=== PATIENT | female | born 1955 | race Caucasian/White ===

== ENCOUNTER 2017-01-16 19:25 | Emergency (ER) | payer OTHER ==
--- NOTE | 2017-01-16 20:59 | ED ORDER SUMMARY ---
..... Patient: GERALD WEBER OrderSheet [facility] VisitID: [id number] [address] [place] [address] 61y, F Registration Date/Time: 01/16/2017 ORDER SHEET Weight: 89.3 kg (stated) Allergies: Bactrim, Codeine GENERAL ORDERS: UA-Culture if indicated Urgent (19:30 01/16/2017 [facility]) (Ack 19:32 [facility] Hand Weaver) (19:43 TLewis R.N.) Old Records (from [facility] visit 3 days ago) (19:44 01/16/2017 [facility]) (Ack 19:45 [facility]) (20:04 [facility] Hand Weaver) POC Glucose (20:17 01/16/2017 [facility]) (Ack 20:22 MWinterer R.N.) (20:28 MWinterer R.N.) MEDICATION ORDERS: Levofloxacin PO 750 mg (NOW) (20:17 01/16/2017 [facility]) (Ack 20:22 MWinterer R.N.) (20:28 MWinterer R.N.) IV FLUIDS: ORDER SHEET NOTES: [Electronically signed by Merrick Strong R.N. (21:12 01/16/2017)] [Electronically signed by Juanito Dawson DO (23:10 01/16/2017)] [Electronically locked/signed by Merrick Strong R.N. (21:12 01/16/2017)]
--- NOTE | 2017-01-16 20:59 | ED CLINICAL REPORT ---
Clinical Report - Physicians/Mid Levels [facility] [address] [place] [address] 01/16/2017 19:25 Patient: GERALD WEBER Time Seen: 19:30. Arrived- By private vehicle. Historian- patient. HISTORY OF PRESENT ILLNESS Chief Complaint: PELVIC PAIN. fatigue. This started today and still present. It was gradual in onset and has been waxing/waning. The symptoms are described as moderate. Modifying factors. Not worsened by anything. Not relieved by anything. The patient has had abdominal pain. The pain is described as located in the lower abdomen and pelvic pain. No low back pain, flank pain, pain with urination, urinary frequency or urgency of urination. No hematuria. The patient is post-menopausal. (Pt is having lower abdominal pain. No pain on urination. Last bm was today, normal per pt. Pt denies any n/v. Pt was seen at [place] in Wednesday, in the ER. Pt had an UTI. She was given antibiotics and still taking them. Pt is here because she doesnt think she is getting any better.). Denies current . Similar symptoms previously: Recent medical care: The patient was seen recently at another facility in the emergency department. Seen for similar symptoms. Evaluation/treatment: CT, labs, CBC, electrolytes, urinalysis and antibiotic prescribed. Diagnosis: pelvic pain and UTI (Diarrhea). ( Seen 3 days ago at [facility] REVIEW OF SYSTEMS No nausea, vomiting, black stools, fever or chills. No sore throat, cough, difficulty breathing, skin rash or enlarged lymph nodes. She has had diarrhea (for several days, now normal BM today). All systems otherwise negative, except as recorded above. PAST HISTORY See nurses notes. ( PCP: Kaylie Addi ([facility]) PROBLEMS: Candidiasis. Diabetes Type II (uses orals and insulin) Herpes Genitalis. Fractured Phalanx (Finger). Dupuytren's contracture of left hand Prior MRSA infection. Arthritis. GERD. Hypercholesterolemia. SURGERIES: Carpal Tunnel Surgery. Knee surgery in 2007 Gastric bypass. Panniculectomy). Medications: Cephalexin Oral. Glipizide Oral. Imprine, , sleeping pill. Insulin Lantus 5 units, at bedtime. Multivitamins Oral. Norvastatin 40mg. Vit b12. Allergies: Bactrim. Codeine. SOCIAL HISTORY Former smoker, end date 1984. No alcohol use or drug use. ADDITIONAL NOTES The nursing notes have been reviewed. PHYSICAL EXAM Vital Signs: 01/16/2017 19:28 BP: 146/87. HR: 95. RR: 18. O2 saturation: 100%. Temp: 98 F. Appearance: Alert. Oriented X3. Patient in mild distress. HEENT: Normal external inspection. Eyes: No scleral icterus or pale conjunctivae. ENT: Pharynx normal. No hearing deficit or pharyngeal erythema. Neck: Neck supple. CVS: Heart sounds normal. Respiratory: No respiratory distress. Breath sounds normal. Chest nontender. Abdomen: Soft. Mild tenderness in the lower abdomen. No organomegaly. No mass. No rebound tenderness or guarding. Back: Normal external inspection. No CVA tenderness. Skin: Skin warm and dry. Normal skin color. Normal skin turgor. Extremities: Extremities nontender. No lower extremity edema. Neuro: Oriented X 3. No motor deficit. LABS, X-RAYS, AND EKG Laboratory Tests: UA-Culture if indicated: (JENNIE: 01/16/2017 19:21) ( MsgRcvd 01/16/2017 20:47) Final results Test Result Flag Units (Reference) URINE COLOR YELLOW URINE APPEARANCE HAZY URINE GLUCOSE 1+ (NEGATIVE) URINE BILIRUBIN NEGATIVE (NEGATIVE) URINE KETONE NEGATIVE (NEGATIVE) URINE SPECIFIC GRAVITY 1.015 (1.010-1.030) URINE PH 6.0 (5.0-8.0) URINE PROTEIN TRACE (NEGATIVE) URINE UROBILINOGEN 0.2 EU/dL (0.2-1.0) URINE NITRITE NEGATIVE (NEGATIVE) URINE BLOOD NEGATIVE (NEGATIVE) URINE LEUK ESTERASE NEGATIVE (NEGATIVE) URINE RBC NONE SEEN rbc/hpf (0-1) URINE WBC 5-10 wbc/hpf (0-1) URINE EPITHELIAL CELLS >15 EPI/hpf (0-5) URINE BACTERIA NONE SEEN (NONE SEEN) URINE COMMENT CULT NOT INDICATED URINE CULTURES ARE SET-UP BASED ON THE FOLLOWING CRITERIA:POSITIVE NITRITEPOSITIVE LEUKOCYTE ESTERASEGREATER THAN 10 WHITE BLOOD CELLSMODERATE (2+) OR GREATER BACTERIA . Bedside Tests: Glucose: moderate hyperglycemia - 208 (performed at bedside). Pulse Oximetry: 01/16/2017 19:28 O2 saturation: 100%. (FIO2 - room air). Interpretation: normal. Note - Tests: (CBC (done 2 days ago at [facility]): normal C.diff: neg Stool culture: no bacterial pathogens, only normal emma CT abd/pelvis w/o contrast (done 2 days ago at [facility]): No gross acute inflammatory or obstructive process seen in the abd or pelvis; post gastric bypass). PROGRESS AND PROCEDURES Course of Care: Pt had extensive work up at [facility] about 2 days ago (blood, urine, stool and CT abd/pelvis). Diarrhea has now improved, but has only had a few doses of antibiotics (Keflex per pt) to treat her UTI. Urine culture from [facility] is still pending, but still 5-10 WBC's but no bacteria now. I will assume that the bacteria is incompletely sensitive to keflex (vs partially treated now with no bacteria on UA now). After a long discussion with patient about repeating the work up, she states she does not want this and would like to try an alternative antibiotic and return to emergency tomorrow or report to her pcp for further work up / treatment if not improving as expected - as her diarrhea has essentially resolved now, she most likely is nearing resolution of her other (likely viral) symptoms as well. 01/16/2017 21:09 BP: 147/76. HR: 69. RR: 14. O2 saturation: 100%. Temp: 97.7 F. Pain level now: 0/10. Patient/family counseled. Old ED records reviewed. (from [facility]). Disposition: Discharged. Condition: stable and improved. CLINICAL IMPRESSION Diarrhea Acute urinary tract infection with cystitis (resolving). Chronic, moderately well controlled type 2 diabetes with hyperglycemia. No coma. Essential hypertension. INSTRUCTIONS Rest. Do not work for three days. Drink plenty of fluids. (You have elected to hold repeated blood tests today. Your urine may represent a partially treated or resistant infection. Please report any tendon (especially Achilles tendon) pain to your doctor and you may need to hold your new antibiotic. Please rest and drink plenty of fluids and follow up with your doctor / clinic and / or return to emergency for any new or worsening symptoms or any concerns.). Warnings: Further evaluation is necessary in order to recheck abnormal lab, obtain test results, conduct further tests and assess the possibility of serious illness. It is very important to follow up with a physician. GENERAL WARNINGS: Return or contact your physician immediately if your condition worsens or changes unexpectedly, if not improving as expected, or if other problems arise. Specifically return if pain, vomiting, bleeding, breathing difficulty or fever. Your Current Medications: STOP TAKING THE FOLLOWING MEDICATIONS: Cephalexin Oral. CONTINUE TAKING THE FOLLOWING MEDICATIONS: Glipizide Oral. Imprine* : sleeping pill. Insulin Lantus* : 5 units at bedtime. Multivitamins Oral. Norvastatin* : 40mg. Vit b12*. Prescription Medications: Cipro 500 mg: take 1 tab orally every 12 hours for 3 days. Dispense six (6). No refills. Substitution is permissible. OTC Medications: Take acetaminophen (Tylenol, Datril, etc.) and ibuprofen (Advil, Nuprin, etc.) according to label instructions. Available over the counter. Follow-up: Follow up with your doctor in about two days. Screening today revealed the patient's blood pressure to be in the hypertensive range. The patient should follow up with a primary care provider for blood pressure management. (Electronically signed by Juanito Dawson DO 01/16/2017 23:10)
--- NOTE | 2017-01-16 20:59 | ED CLINICAL REPORT ---
Clinical Report - Physicians/Mid Levels [facility] [address] [place] [address] 01/16/2017 19:25 Patient: GERALD WEBER Time Seen: 19:30. Arrived- By private vehicle. Historian- patient. HISTORY OF PRESENT ILLNESS Chief Complaint: PELVIC PAIN. fatigue. This started today and still present. It was gradual in onset and has been waxing/waning. The symptoms are described as moderate. Modifying factors. Not worsened by anything. Not relieved by anything. The patient has had abdominal pain. The pain is described as located in the lower abdomen and pelvic pain. No low back pain, flank pain, pain with urination, urinary frequency or urgency of urination. No hematuria. The patient is post-menopausal. (Pt is having lower abdominal pain. No pain on urination. Last bm was today, normal per pt. Pt denies any n/v. Pt was seen at [place] in Wednesday, in the ER. Pt had an UTI. She was given antibiotics and still taking them. Pt is here because she doesnt think she is getting any better.). Denies current . Similar symptoms previously: Recent medical care: The patient was seen recently at another facility in the emergency department. Seen for similar symptoms. Evaluation/treatment: CT, labs, CBC, electrolytes, urinalysis and antibiotic prescribed. Diagnosis: pelvic pain and UTI (Diarrhea). ( Seen 3 days ago at [facility] REVIEW OF SYSTEMS No nausea, vomiting, black stools, fever or chills. No sore throat, cough, difficulty breathing, skin rash or enlarged lymph nodes. She has had diarrhea (for several days, now normal BM today). All systems otherwise negative, except as recorded above. PAST HISTORY See nurses notes. ( PCP: Kaylie Addi ([facility]) PROBLEMS: Candidiasis. Diabetes Type II (uses orals and insulin) Herpes Genitalis. Fractured Phalanx (Finger). Dupuytren's contracture of left hand Prior MRSA infection. Arthritis. GERD. Hypercholesterolemia. SURGERIES: Carpal Tunnel Surgery. Knee surgery in 2007 Gastric bypass. Panniculectomy). Medications: Cephalexin Oral. Glipizide Oral. Imprine, , sleeping pill. Insulin Lantus 5 units, at bedtime. Multivitamins Oral. Norvastatin 40mg. Vit b12. Allergies: Bactrim. Codeine. SOCIAL HISTORY Former smoker, end date 1984. No alcohol use or drug use. ADDITIONAL NOTES The nursing notes have been reviewed. PHYSICAL EXAM Vital Signs: 01/16/2017 19:28 BP: 146/87. HR: 95. RR: 18. O2 saturation: 100%. Temp: 98 F. Appearance: Alert. Oriented X3. Patient in mild distress. HEENT: Normal external inspection. Eyes: No scleral icterus or pale conjunctivae. ENT: Pharynx normal. No hearing deficit or pharyngeal erythema. Neck: Neck supple. CVS: Heart sounds normal. Respiratory: No respiratory distress. Breath sounds normal. Chest nontender. Abdomen: Soft. Mild tenderness in the lower abdomen. No organomegaly. No mass. No rebound tenderness or guarding. Back: Normal external inspection. No CVA tenderness. Skin: Skin warm and dry. Normal skin color. Normal skin turgor. Extremities: Extremities nontender. No lower extremity edema. Neuro: Oriented X 3. No motor deficit. LABS, X-RAYS, AND EKG Laboratory Tests: UA-Culture if indicated: (JENNIE: 01/16/2017 19:21) ( MsgRcvd 01/16/2017 20:47) Final results Test Result Flag Units (Reference) URINE COLOR YELLOW URINE APPEARANCE HAZY URINE GLUCOSE 1+ (NEGATIVE) URINE BILIRUBIN NEGATIVE (NEGATIVE) URINE KETONE NEGATIVE (NEGATIVE) URINE SPECIFIC GRAVITY 1.015 (1.010-1.030) URINE PH 6.0 (5.0-8.0) URINE PROTEIN TRACE (NEGATIVE) URINE UROBILINOGEN 0.2 EU/dL (0.2-1.0) URINE NITRITE NEGATIVE (NEGATIVE) URINE BLOOD NEGATIVE (NEGATIVE) URINE LEUK ESTERASE NEGATIVE (NEGATIVE) URINE RBC NONE SEEN rbc/hpf (0-1) URINE WBC 5-10 wbc/hpf (0-1) URINE EPITHELIAL CELLS >15 EPI/hpf (0-5) URINE BACTERIA NONE SEEN (NONE SEEN) URINE COMMENT CULT NOT INDICATED URINE CULTURES ARE SET-UP BASED ON THE FOLLOWING CRITERIA:POSITIVE NITRITEPOSITIVE LEUKOCYTE ESTERASEGREATER THAN 10 WHITE BLOOD CELLSMODERATE (2+) OR GREATER BACTERIA . Bedside Tests: Glucose: moderate hyperglycemia - 208 (performed at bedside). Pulse Oximetry: 01/16/2017 19:28 O2 saturation: 100%. (FIO2 - room air). Interpretation: normal. Note - Tests: (CBC (done 2 days ago at [facility]): normal C.diff: neg Stool culture: no bacterial pathogens, only normal emma CT abd/pelvis w/o contrast (done 2 days ago at [facility]): No gross acute inflammatory or obstructive process seen in the abd or pelvis; post gastric bypass). PROGRESS AND PROCEDURES Course of Care: Pt had extensive work up at [facility] about 2 days ago (blood, urine, stool and CT abd/pelvis). Diarrhea has now improved, but has only had a few doses of antibiotics (Keflex per pt) to treat her UTI. Urine culture from [facility] is still pending, but still 5-10 WBC's but no bacteria now. I will assume that the bacteria is incompletely sensitive to keflex (vs partially treated now with no bacteria on UA now). After a long discussion with patient about repeating the work up, she states she does not want this and would like to try an alternative antibiotic and return to emergency tomorrow or report to her pcp for further work up / treatment if not improving as expected - as her diarrhea has essentially resolved now, she most likely is nearing resolution of her other (likely viral) symptoms as well. 01/16/2017 21:09 BP: 147/76. HR: 69. RR: 14. O2 saturation: 100%. Temp: 97.7 F. Pain level now: 0/10. Patient/family counseled. Old ED records reviewed. (from [facility]). Disposition: Discharged. Condition: stable and improved. CLINICAL IMPRESSION Diarrhea Acute urinary tract infection with cystitis (resolving). Chronic, moderately well controlled type 2 diabetes with hyperglycemia. No coma. Essential hypertension. INSTRUCTIONS Rest. Do not work for three days. Drink plenty of fluids. (You have elected to hold repeated blood tests today. Your urine may represent a partially treated or resistant infection. Please report any tendon (especially Achilles tendon) pain to your doctor and you may need to hold your new antibiotic. Please rest and drink plenty of fluids and follow up with your doctor / clinic and / or return to emergency for any new or worsening symptoms or any concerns.). Warnings: Further evaluation is necessary in order to recheck abnormal lab, obtain test results, conduct further tests and assess the possibility of serious illness. It is very important to follow up with a physician. GENERAL WARNINGS: Return or contact your physician immediately if your condition worsens or changes unexpectedly, if not improving as expected, or if other problems arise. Specifically return if pain, vomiting, bleeding, breathing difficulty or fever. Your Current Medications: STOP TAKING THE FOLLOWING MEDICATIONS: Cephalexin Oral. CONTINUE TAKING THE FOLLOWING MEDICATIONS: Glipizide Oral. Imprine* : sleeping pill. Insulin Lantus* : 5 units at bedtime. Multivitamins Oral. Norvastatin* : 40mg. Vit b12*. Prescription Medications: Cipro 500 mg: take 1 tab orally every 12 hours for 3 days. Dispense six (6). No refills. Substitution is permissible. OTC Medications: Take acetaminophen (Tylenol, Datril, etc.) and ibuprofen (Advil, Nuprin, etc.) according to label instructions. Available over the counter. Follow-up: Follow up with your doctor in about two days. Screening today revealed the patient's blood pressure to be in the hypertensive range. The patient should follow up with a primary care provider for blood pressure management. (Electronically signed by Juanito Dawson DO 01/16/2017 23:10)
--- NOTE | 2017-01-16 20:59 | ED NURSING NOTES ---
Clinical Report - Nurses [facility] [address] [place] [address] 01/16/2017 19:25 Patient: GERALD WEBER TRIAGE Triage time 19:36. Acuity: LEVEL 3. Chief Complaint: ABDOMINAL CRAMPS. --19:41 Jt Cardoso R.N. 19:28 01/16/17. BP: 146/87. HR: 95. RR: 18. O2 saturation: 100%. Temp: 98 F. Pain level now 03/29. --19:41 Jt Cardoso R.N. Weight: 89.3 kg stated. Height/Length: 67 inches Per Patient. BMI: 30.9. --19:38 Jt Cardoso R.N. Medications Glipizide Oral. Imprine, , sleeping pill. Insulin Lantus 5 units, at bedtime. Multivitamins Oral. Norvastatin 40mg. Vit b12. --19:41 Jt Cadroso R.N. Medication/allergy information source: the patient. --19:41 Jt Cardoso R.N. Allergies Bactrim. Codeine. --19:41 Jt Cardoso R.N. History Arrived by private vehicle. Historian: patient. Unaccompanied. [facility] Onset. (since last wednesday). ( Pt is having lower abdominal pain. No pain on urination. Last bm was today, normal per pt. Pt denies any n/v. Pt was seen at [place] in Wednesday, in the ER. Pt had an UTI. She was given antibiotics and still taking them. Pt is here because she doesnt think she is getting any better.). Treatment IRONING PLEATER: None. SOCIAL HX: Never smoker. No alcohol use or drug use. --19:41 Jt Cardoso R.N. PROBLEMS: Bronchitis. Candidiasis. Herpes Genitalis. Fractured Phalanx (Finger). Tetanus Status. Immunizations. Insomnia. Hypercholesterolemia. Diabetes Mellitus. --19:40 Jt Cardoso R.N. Interventions ID band on patient. To treatment room. --19:41 Jt Cardoso R.N. PHYSICAL ASSESSMENT GENERAL / NEURO / PSYCH: Alert. Oriented X 4. Appears in no acute distress. HEENT: Mucous membranes are pink. RESPIRATORY: Respirations not labored. Breath sounds within normal limits. CVS: Normal heart rate and rhythm. Capillary refill less than 2 seconds. GI / : Abdomen soft and nontender. Bowel sounds within normal limits. No vaginal bleeding. No vaginal discharge. ( lower abdominal cramping.). SKIN: Skin is warm and dry. --19:42 Jt Cardoso R.N. NURSING PROGRESS NOTES Patient gowned. Two patient identifiers checked. Call light placed in reach. Side rails up x 1. Bed placed in lowest position. Brakes of bed on. --19:42 Jt Cardoso R.N. 20:28 01/16/2017 Levofloxacin PO 750 mg given. Allergies verified and confirmed 5 rights. --20:28 Carole Urbina R.N. 20:29 01/16/17. Point of care testing: performed by nurse. Glucose: 208. Result shown to the ED physician. --20:29 Carole Urbina R.N. DISPOSITION / DISCHARGE Departure time: 21:11. Condition at departure: stable. The goals identified in the patient's plan of care were met. No learning barriers present. Discharge instructions provided and reviewed with the patient. Reviewed medication(s) side effects, precautions, dosing and course information. Prescription(s) given to the patient (Gerald verbalizes importance of finishing all prescribed antibiotics.). Patient verbalized understanding. Written instructions provided in Vietnamese. ( Gerald verbalizes understanding of all d/c instructions including need to f/u with PCP. She has no questions and voices no concerns at this time.). The patient was discharged by the physician. She was discharged home and accompanied by family. She left the Emergency Department ambulatory and via private vehicle. Family member driving. VLAD COMA SCORE: Holden Coma Scale: 15- eyes open spontaneously (4); best verbal response- oriented x 4 (5); best motor response- obeys commands (6). --21:11 Merrick Strong R.N. 21:09 01/16/17. BP: 147/76 (regular adult cuff) taken on the left arm, via an automated monitor, while sitting. HR: 69 (normal rate). RR: 14 (regular, unlabored and normal). O2 saturation: 100% on room air. Temp: 97.7 F (oral). Pain level now: 0/10. --21:11 Merrick Strong R.N. Locked/Released at 01/16/2017 21:12 by Merrick Strong R.N.
--- NOTE | 2017-01-16 20:59 | ED NURSING NOTES ---
Clinical Report - Nurses [facility] [address] [place] [address] 01/16/2017 19:25 Patient: GERALD WEBER TRIAGE Triage time 19:36. Acuity: LEVEL 3. Chief Complaint: ABDOMINAL CRAMPS. --19:41 Jt Cardoso R.N. 19:28 01/16/17. BP: 146/87. HR: 95. RR: 18. O2 saturation: 100%. Temp: 98 F. Pain level now 03/29. --19:41 Jt Cardoso R.N. Weight: 89.3 kg stated. Height/Length: 67 inches Per Patient. BMI: 30.9. --19:38 Jt Cardoso R.N. Medications Glipizide Oral. Imprine, , sleeping pill. Insulin Lantus 5 units, at bedtime. Multivitamins Oral. Norvastatin 40mg. Vit b12. --19:41 Jt Cardoso R.N. Medication/allergy information source: the patient. --19:41 Jt Cardoso R.N. Allergies Bactrim. Codeine. --19:41 Jt Cardoso R.N. History Arrived by private vehicle. Historian: patient. Unaccompanied. [facility] Onset. (since last wednesday). ( Pt is having lower abdominal pain. No pain on urination. Last bm was today, normal per pt. Pt denies any n/v. Pt was seen at [facility] in Wednesday, in the ER. Pt had an UTI. She was given antibiotics and still taking them. Pt is here because she doesnt think she is getting any better.). Treatment BOX TOE BUFFER: None. SOCIAL HX: Never smoker. No alcohol use or drug use. --19:41 Jt Cardoso R.N. PROBLEMS: Bronchitis. Candidiasis. Herpes Genitalis. Fractured Phalanx (Finger). Tetanus Status. Immunizations. Insomnia. Hypercholesterolemia. Diabetes Mellitus. --19:40 Jt Cardoso R.N. Interventions ID band on patient. To treatment room. --19:41 Jt Cardoso R.N. PHYSICAL ASSESSMENT GENERAL / NEURO / PSYCH: Alert. Oriented X 4. Appears in no acute distress. HEENT: Mucous membranes are pink. RESPIRATORY: Respirations not labored. Breath sounds within normal limits. CVS: Normal heart rate and rhythm. Capillary refill less than 2 seconds. GI / : Abdomen soft and nontender. Bowel sounds within normal limits. No vaginal bleeding. No vaginal discharge. ( lower abdominal cramping.). SKIN: Skin is warm and dry. --19:42 Jt Cardoso R.N. NURSING PROGRESS NOTES Patient gowned. Two patient identifiers checked. Call light placed in reach. Side rails up x 1. Bed placed in lowest position. Brakes of bed on. --19:42 Jt Cardoso R.N. 20:28 01/16/2017 Levofloxacin PO 750 mg given. Allergies verified and confirmed 5 rights. --20:28 Carole Urbina R.N. 20:29 01/16/17. Point of care testing: performed by nurse. Glucose: 208. Result shown to the ED physician. --20:29 Carole Urbina R.N. DISPOSITION / DISCHARGE Departure time: 21:11. Condition at departure: stable. The goals identified in the patient's plan of care were met. No learning barriers present. Discharge instructions provided and reviewed with the patient. Reviewed medication(s) side effects, precautions, dosing and course information. Prescription(s) given to the patient (Gerald verbalizes importance of finishing all prescribed antibiotics.). Patient verbalized understanding. Written instructions provided in Danish. ( Gerald verbalizes understanding of all d/c instructions including need to f/u with PCP. She has no questions and voices no concerns at this time.). The patient was discharged by the physician. She was discharged home and accompanied by family. She left the Emergency Department ambulatory and via private vehicle. Family member driving. VLAD COMA SCORE: [place] Coma Scale: 15- eyes open spontaneously (4); best verbal response- oriented x 4 (5); best motor response- obeys commands (6). --21:11 Merrick Strong R.N. 21:09 01/16/17. BP: 147/76 (regular adult cuff) taken on the left arm, via an automated monitor, while sitting. HR: 69 (normal rate). RR: 14 (regular, unlabored and normal). O2 saturation: 100% on room air. Temp: 97.7 F (oral). Pain level now: 0/10. --21:11 Merrick Strong R.N. Locked/Released at 01/16/2017 21:12 by Merrick Strong R.N.
--- NOTE | 2017-01-16 20:59 | ED ORDER SUMMARY ---
..... Patient: GERALD WEBER OrderSheet [facility] VisitID: [id number] [address] [place] [address] 61y, F Registration Date/Time: 01/16/2017 ORDER SHEET Weight: 89.3 kg (stated) Allergies: Bactrim, Codeine GENERAL ORDERS: UA-Culture if indicated Urgent (19:30 01/16/2017 [facility]) (Ack 19:32 4[facility] ER Rad Tech) (19:43 TLewis R.N.) Old Records (from [facility] ED visit 3 days ago) (19:44 01/16/2017 [facility]) (Ack 19:45 4[facility] ER Rad Tech) (20:04 4[facility] ER Rad Tech) POC Glucose (20:17 01/16/2017 [facility]) (Ack 20:22 MWinterer R.N.) (20:28 MWinterer R.N.) MEDICATION ORDERS: Levofloxacin PO 750 mg (NOW) (20:17 01/16/2017 [facility]) (Ack 20:22 MWinterer R.N.) (20:28 MWinterer R.N.) IV FLUIDS: ORDER SHEET NOTES: [Electronically signed by Merrick Strong R.N. (21:12 01/16/2017)] [Electronically signed by Juanito Dawson DO (23:10 01/16/2017)] [Electronically locked/signed by Merrick Strong R.N. (21:12 01/16/2017)]
--- NOTE | 2017-01-16 23:10 | ED MAR SUMMARY ---
..... Medication Administration Record [facility] [address] [place] [address] Patient: GERALD WEBER Visit ID: [id number] 61y, F Weight: 89.3 kg Height/Length: 67 in BMI: 30.9 ALLERGIES: Bactrim, Codeine Given 20:28 01/16/2017 Carole Urbina R.N. Medication Administered: LEVOFLOXACIN [PO], Dose: 750 mg PO. Medication Ordered: Levofloxacin PO 750 mg (NOW).
--- NOTE | 2017-01-16 23:10 | ED MED RECONCILIATION SUMMARY ---
Patient: GERALD WEBER Medication Reconciliation Report [facility] VisitID: [id number] [address] [place] [address] 61y, F Registration Date/Time: 01/16/2017 Weight: 89.3 kg Height/Length: 67 in. BMI: 30.9 ALLERGIES: Bactrim, Codeine The patient's Home Medications are listed below: STOP TAKING THE FOLLOWING MEDICATIONS: Cephalexin Oral CONTINUE TAKING THE FOLLOWING MEDICATIONS: Glipizide Oral Imprine, sleeping pill Insulin Lantus 5 units, at bedtime Multivitamins Oral Norvastatin 40mg Vit b12 The source(s) of the original Home Medication information: patient The following Medications were given to the patient in the Emergency Department: Levofloxacin [PO] PO 750 mg, administered: 01/16/2017 8:28:00 PM The following Medications were prescribed to the patient: Take acetaminophen (Tylenol, Datril, etc.) and ibuprofen (Advil, Nuprin, etc.) according to label instructions. Available over the counter. -- Juanito Dawson DO Cipro 500 mg: take 1 tab orally every 12 hours for 3 days. Dispense six (6). No refills. Substitution is permissible. -- Juanito Dawson DO
--- NOTE | 2017-01-16 23:10 | ED MAR SUMMARY ---
..... Medication Administration Record [facility] [address] [address] Patient: GERALD WEBER Visit ID: [id number] 61y, F Weight: 89.3 kg Height/Length: 67 in BMI: 30.9 ALLERGIES: Bactrim, Codeine Given 20:28 01/16/2017 Carole Urbina R.N. Medication Administered: LEVOFLOXACIN [PO], Dose: 750 mg PO. Medication Ordered: Levofloxacin PO 750 mg (NOW).
--- NOTE | 2017-01-16 23:10 | ED MED RECONCILIATION SUMMARY ---
Patient: GERALD WEBER Medication Reconciliation Report [facility] VisitID: [id number] [address] [place] [address] 61y, F Registration Date/Time: 01/16/2017 Weight: 89.3 kg Height/Length: 67 in. BMI: 30.9 ALLERGIES: Bactrim, Codeine The patient's Home Medications are listed below: STOP TAKING THE FOLLOWING MEDICATIONS: Cephalexin Oral CONTINUE TAKING THE FOLLOWING MEDICATIONS: Glipizide Oral Imprine, sleeping pill Insulin Lantus 5 units, at bedtime Multivitamins Oral Norvastatin 40mg Vit b12 The source(s) of the original Home Medication information: patient The following Medications were given to the patient in the Emergency Department: Levofloxacin [PO] PO 750 mg, administered: 01/16/2017 8:28:00 PM The following Medications were prescribed to the patient: Take acetaminophen (Tylenol, Datril, etc.) and ibuprofen (Advil, Nuprin, etc.) according to label instructions. Available over the counter. -- Juanito Dawson DO Cipro 500 mg: take 1 tab orally every 12 hours for 3 days. Dispense six (6). No refills. Substitution is permissible. -- Juanito Dawson DO
--- NOTE | 2017-01-16 23:10 | ED DISCHARGE INSTRUCTIONS ---
Patient: GERALD WEBER General Instructions [facility] VisitID: [id number] [place] [address] 61y, F Registration Date/Time: 01/16/2017 Diarrhea Acute urinary tract infection with cystitis (resolving). Chronic, moderately well controlled type 2 diabetes with hyperglycemia. No coma. Essential hypertension. INSTRUCTIONS Rest. Do not work for three days. Drink plenty of fluids. (You have elected to hold repeated blood tests today. Your urine may represent a partially treated or resistant infection. Please report any tendon (especially Achilles tendon) pain to your doctor and you may need to hold your new antibiotic. Please rest and drink plenty of fluids and follow up with your doctor / clinic and / or return to emergency for any new or worsening symptoms or any concerns.). Warnings: Further evaluation is necessary in order to recheck abnormal lab, obtain test results, conduct further tests and assess the possibility of serious illness. It is very important to follow up with a physician. GENERAL WARNINGS: Return or contact your physician immediately if your condition worsens or changes unexpectedly, if not improving as expected, or if other problems arise. Specifically return if pain, vomiting, bleeding, breathing difficulty or fever. Your Current Medications: STOP TAKING THE FOLLOWING MEDICATIONS: Cephalexin Oral. CONTINUE TAKING THE FOLLOWING MEDICATIONS: Glipizide Oral. Imprine* : sleeping pill. Insulin Lantus* : 5 units at bedtime. Multivitamins Oral. Norvastatin* : 40mg. Vit b12*. Prescription Medications: Cipro 500 mg: take 1 tab orally every 12 hours for 3 days. Dispense six (6). No refills. Substitution is permissible. OTC Medications: Take acetaminophen (Tylenol, Datril, etc.) and ibuprofen (Advil, Nuprin, etc.) according to label instructions. Available over the counter. Follow-up: Follow up with your doctor in about two days. Screening today revealed the patient's blood pressure to be in the hypertensive range. The patient should follow up with a primary care provider for blood pressure management. ADDITIONAL INFORMATION Bladder Infection,Female (Adult) A bladder infection ("cystitis" or "UTI") usually causes a constant urge to urinate and a burning when passing urine. Urine may be cloudy, smelly or dark. There may be pain in the lower abdomen. A bladder infection occurs when bacteria from the vaginal area enter the bladder opening (urethra). This can occur from sexual intercourse, wearing tight clothing, dehydration and other factors. Home Care: Drink lots of fluids (at least 6-8 glasses a day, unless you must restrict fluids for other medical reasons). This will force the medicine into your urinary system and flush the bacteria out of your body. Avoid sexual intercourse until your symptoms are gone. Avoid caffeine, alcohol and spicy foods. These can irritate the bladder. A bladder infection is treated with antibiotics. You may also be given Pyridium (generic = phenazopyridine) to reduce the burning sensation. This medicine will cause your urine to become a bright orange color. The orange urine may stain clothing. You may wear a pad or panty-liner to protect clothing. Preventing Future Infections: Always wipe from front to back after a bowel movement. Keep the genital area clean and dry. Drink plenty of fluids each day to avoid dehydration. Both sexual partners should wash before intercourse. Urinate right after intercourse to flush out the bladder. Wear cotton underwear and cotton-lined panty hose; avoid tight-fitting pants. If you are on control pills and are having frequent bladder infections, discuss with your doctor. Follow Up: Return to this facility or see your doctor if ALL symptoms are not gone after three days of treatment. Get Prompt Medical Attention if any of the following occur: Fever of 100.4F (38C) or higher, or as directed by your healthcare provider No improvement by the third day of treatment Increasing back or abdominal pain Repeated vomiting; unable to keep medicine down Weakness, dizziness or fainting Vaginal discharge Pain, redness or swelling in the labia (outer vaginal area) Diabetes with High Blood Sugar You have been treated for high blood sugar (hyperglycemia). This may be becauseof an infection or other illness;eating too many sweets or starches ; not taking enough insulin. Home care High blood sugar may cause symptoms that you can learn to recognize, such as these: If you feel like your blood sugar may be too high, measure it using a blood or urine test. If it is above your usual range, use the "sliding scale"rRegular insulin dose your doctor gave you to correct this. If no "sliding scale" orders were given, contact your doctor for further advice. If your blood sugar is over 300, and you can't reach your doctor, go to the hospital emergency room. Monitor and write down your blood sugars - and insulin dose, if you take insulin - atleast twice a day. Do this before breakfast and before dinner. Do this for the next 3 to 5 days. Follow-up care Follow up with your health care provderduring the next week to review your blood sugar records. You will find out if you need to adjust your dose of insulin or other medicine for blood sugar. When to seek medical care Get prompt medical attention if either of these occur: High blood sugar.Symptoms are frequent urination, feeling dizzy, thirst, headache, nausea or vomiting, abdominal pain, and drowsiness or loss of consciousness. Low blood sugar. Symptoms are fatigue, headache, shakes, excess sweating, hunger, anxiety, reduced vision, drowsiness, weakness, confusion or loss of consciousness, and seizure. High Blood Pressure -- To Be Confirmed [No Tx] Your blood pressure was higher today than normal. Sometimes anxiety or pain can cause a temporary rise in blood pressure that later returns to normal. If your blood pressure is high on one measurement, this does not mean that you have hypertension (a chronic illness). However, you must have your blood pressure measured again within the next few days to find out if its still high. A normal blood pressure is 120/80 or less. The first (top) number is the "systolic" pressure. The second (bottom) number is the "diastolic" pressure. Hypertension exists when either the top number is 140 or higher, OR the bottom number is 90 or higher on repeated measurements. Blood pressure in the range of 120-140 (systolic) or 80-89 (diastolic) is considered "pre-hypertension". This means your are at risk for getting hypertension. You should have regular blood pressure checks to be sure your blood pressure is not rising. Home Care: Measure your blood pressure on 3 different days and write down the results. This can be done at your doctor's office or this facility. Some pharmacies and grocery stores offer automated blood pressure machines for your use. Follow Up: If your blood pressure is "high" (over 120/80) on 2 out of 3 days, you will need to follow up with your doctor for further evaluation and treatment. DO NOT PUT THIS OFF! Untreated high blood pressure increases the risk for heart attack, also known as acute myocardial infarction, or AMI, and stroke. It is a treatable condition. Get Prompt Medical Attention if any of the following occur: Chest pain or shortness of breath Severe headache Throbbing or rushing sound in the ears Nosebleed Sudden severe abdominal pain Extreme drowsiness, confusion or fainting Dizziness or vertigo (dizziness with spinning sensation) Weakness of an arm or leg or one side of the face Difficulty with speech or vision Diarrhea, Uncertain Cause (Adult, Report Pending) Diarrhea has several possible causes. Commonstomach fluis caused by a virus. Food poisoning, bacteria or parasites are other causes for diarrhea. Only diarrhea caused by bacteria or parasites requires treatment with an antibiotic. Diarrhea from a virus or food poisoning improves with simple home treatment. A stool sample is needed to make the diagnosis of an infection with bacteria or parasites. Up to three stool specimens may be required to diagnose This may take up to two days to get the result. It may be necessary to wait until the stool test is complete to make the diagnosis and select the best antibiotic to prescribe. Home Care: If symptoms are severe, rest at home for the next 24 hours or until you are feeling better. You may use acetaminophen (Tylenol) or ibuprofen (Motrin, Advil) to control fever, unless another medicine was prescribed. [NOTE: If you have chronic liver or kidney disease or ever had a stomach ulcer or GI bleeding, talk with your doctor before using these medicines.] (Aspirin should never be used in anyone under 18 years of age who is ill with a fever. It may cause severe liver damage.) Avoid tobacco, caffeine and alcohol, which may worsen your symptoms. If anti-diarrhea medicine was prescribed, take this only as directed. Sometimes anti-diarrhea medicine can make your condition worse if the cause is an infectious diarrhea. Therefore, anti-diarrhea medicine should not be taken for this condition unless advised by your doctor. During The First 12-24 Hours follow the diet below: BEVERAGES: Sport drinks like Gatorade, soft drinks without caffeine; gabriel claudio, mineral water (plain or flavored), decaffeinated tea and coffee. SOUPS: Clear broth, consomm and bouillon DESSERTS: Plain gelatin (Jell-O), popsicles and fruit juice bars. During The Next 24 Hours you may add the following to the above: Hot cereal, plain toast, bread, rolls, crackers Plain noodles, rice, mashed potatoes, chicken noodle or rice soup Unsweetened canned fruit (avoid pineapple), bananas Limit fat intake to less than 15 grams per day by avoiding margarine, butter, oils, mayonnaise, sauces, gravies, fried foods, peanut butter, meat, poultry and fish. Limit fiber; avoid raw or cooked vegetables, fresh fruits (except bananas) and bran cereals. Limit caffeine and chocolate. No spices or seasonings except salt. During The Next 24 Hours Gradually resume a normal diet, as you feel better and your symptoms lessen. Follow Up with your doctor or as advised if you are not improving over the next two days. If you were asked to bring a specimen from home, bring the sample on the day of collection. You may call in 2 days (or as directed) for the results. Get Prompt Medical Attention if any of the following occur: Increasing abdominal pain or constant lower right abdominal pain Continued vomiting (unable to keep liquids down) Frequent diarrhea (more than 5 times a day) Blood in vomit or stool (black or red color) Reduced oral intake Dark urine, reduced urine output Weakness, dizziness, fainting Drowsiness, confusion, stiff neck or seizure Fever of 100.4F (38C) oral or higher, not better with fever medication New rash Ciprofloxacin Hydrochloride Oral tablet What is this medicine? CIPROFLOXACIN (sip delano FLOX a sin) is a quinolone antibiotic. It is used to treat certain kinds of bacterial infections. It will not work for colds, flu, or other viral infections. How should I use this medicine? Take this medicine by mouth with a glass of water. Follow the directions on the prescription label. Take your medicine at regular intervals. Do not take your medicine more often than directed. Take all of your medicine as directed even if you think your are better. Do not skip doses or stop your medicine early. You can take this medicine with food or on an empty stomach. It can be taken with a meal that contains dairy or calcium, but do not take it alone with a dairy product, like milk or yogurt or calcium-fortified juice. A special MedGuide will be given to you by the pharmacist with each prescription and refill. Be sure to read this information carefully each time. Talk to your merchandising execution associate regarding the use of this medicine in children. Special care may be needed. What side effects may I notice from receiving this medicine? Side effects that you should report to your doctor or health childcare worker as soon as possible: - allergic reactions like skin rash, itching or hives, swelling of the face, lips, or tongue - breathing problems - confusion, nightmares or hallucinations - feeling faint or lightheaded, falls - irregular heartbeat - joint, muscle or tendon pain or swelling - pain or trouble passing urine -persistent headache with or without blurred vision - redness, blistering, peeling or loosening of the skin, including inside the mouth - seizure - unusual pain, numbness, tingling, or weakness Side effects that usually do not require medical attention (report to your doctor or health childcare worker if they continue or are bothersome): - diarrhea - nausea or stomach upset - white patches or sores in the mouth What may interact with this medicine? Do not take this medicine with any of the following medications: cisapride droperidol terfenadine tizanidine This medicine may also interact with the following medications: antacids caffeine cyclosporin didanosine (ddI) buffered tablets or powder medicines for diabetes medicines for inflammation like ibuprofen, naproxen methotrexate multivitamins omeprazole phenytoin probenecid sucralfate theophylline warfarin What if I miss a dose? If you miss a dose, take it as soon as you can. If it is almost time for your next dose, take only that dose. Do not take double or extra doses. Where should I keep my medicine? Keep out of the reach of children. Store at room temperature below 30 degrees C (86 degrees F). Keep container tightly closed. Throw away any unused medicine after the expiration date. What should I tell my health care provider before I take this medicine? They need to know if you have any of these conditions: -bone problems -cerebral disease -joint problems -irregular heartbeat -kidney disease -liver disease -myasthenia gravis -seizure disorder -tendon problems -an unusual or allergic reaction to ciprofloxacin, other antibiotics or medicines, foods, dyes, or preservatives - or trying to get -breast-feeding What should I watch for while using this medicine? Tell your doctor or health childcare worker if your symptoms do not improve. Do not treat diarrhea with over the counter products. Contact your doctor if you have diarrhea that lasts more than 2 days or if it is severe and watery. You may get drowsy or dizzy. Do not drive, use machinery, or do anything that needs mental alertness until you know how this medicine affects you. Do not stand or sit up quickly, especially if you are an older patient. This reduces the risk of dizzy or fainting spells. This medicine can make you more sensitive to the sun. Keep out of the sun. If you cannot avoid being in the sun, wear protective clothing and use sunscreen. Do not use sun lamps or tanning beds/booths. Avoid antacids, aluminum, calcium, iron, magnesium, and zinc products for 6 hours before and 2 hours after taking a dose of this medicine. You have been given the following additional information: Bladder Infection, Female (Adult) Diabetic Hyperglycemia Hypertension, To Be Confirmed Diarrhea, Unk Cause (Adult) Report Pendg Ciprofloxacin Hydrochloride Oral tablet Rest. Do not work for three days. (Electronically signed by Juanito Dawson DO 01/16/2017 23:10)
== END 2017-01-16 21:11 | disposition home or self-care (01) ==
LOC: ED SRH 19:25
DX: K21.9 Gastro-esophageal reflux disease without esophagitis (principal); N30.00 Acute cystitis without hematuria; R19.7 Diarrhea, unspecified; E11.65 Type 2 diabetes mellitus with hyperglycemia; Z79.4 Long term (current) use of insulin; I10 Essential (primary) hypertension; Z79.891 Long term (current) use of opiate analgesic; Z88.5 Allergy status to narcotic agent; Z88.1 Allergy status to other antibiotic agents
CPT/HCPCS: 90004; 90098